=== PATIENT | female | born 1965 | race Hispanic/Latino ===

== ENCOUNTER 2018-07-10 19:15 | Emergency (ER) | payer OTHER ==
[2018-07-10] MEDS ORDERED: SODIUM CHLORIDE 0.9% 1000ML 1,000 ML IV ONE (20:07)
[2018-07-10] MEDS ORDERED: MORPHINE SULFATE 4 MG/1ML SYG ONE ×2 (20:07→21:45)
[2018-07-10] MEDS ORDERED: ONDANSETRON HCL 4 MG/2 ML VIAL ONE (20:07)
[2018-07-10 20:08] LABS: BASOPHILS % (AUTO) 0.8 % (0.0-5.0); EOSINOPHILS % (AUTO) 2.8 % (0.0-8.0); HEMATOCRIT 42.8 % (36-48); LYMPHOCYTES % (AUTO) 30.8 % (21.0-51.0); MEAN CORPUSCULAR HEMOGLOBIN 28.8 pg (27.0-33.0); MEAN CORPUSCULAR HGB CONC 32.9 g/dL (32.0-36.0); MEAN CORPUSCULAR VOLUME 87.5 fL (79-99); MONOCYTES % (AUTO) 6.9 % (3.0-13.0); NEUTROPHILS % (AUTO) 58.7 % (40.0-77.0); NUCLEATED RED BLOOD CELLS 0.2 % (0.0-0.19); PLATELET COUNT (AUTO) 215 K/uL (130-400); RED BLOOD CELL COUNT(AUTO) 4.89 MIL/uL (4.00-5.50); RED CELL DISTRIBUTION WIDTH 14.7 % (11.0-15.5); WHITE BLOOD COUNT (AUTO) 9.7 K/uL (4.8-10.8)
[2018-07-10 20:18] LABS: CREATININE 0.9 mg/dL (0.5-1.5); POTASSIUM 4.2 mmol/L (3.5-5.1)
[2018-07-10 20:24] LABS: ALBUMIN 3.6 g/dL (3.5-5.0); BILIRUBIN,TOTAL 0.3 mg/dL (0.2-1.0); TOTAL PROTEIN, SERUM 6.7 g/dL (6.0-8.3)
[2018-07-10 20:27] LABS: BILIRUBIN,URINE Negative (NEGATIVE); COLOR,URINE Yellow (YELLOW); GLUCOSE, URINE (UA) Negative (NEGATIVE); KETONES,URINE Negative (NEGATIVE); LEUKOCYTE ESTERASE ,URINE Small (NEGATIVE); NITRATE,URINE Negative (NEGATIVE); OCCULT BLOOD,URINE Trace (NEGATIVE); PROTEIN,URINE Negative (NEGATIVE)
[2018-07-10 20:28] LABS: APPEARANCE,URINE SLIGHTLY CLOUDY (CLEAR)
[2018-07-10 20:34] LABS: RBC,URINE 0-1 /HPF (0-1)
[2018-07-10 20:35] LABS: BACTERIA,URINE Rare /HPF (None Seen)
[2018-07-10] MEDS ORDERED: KETOROLAC TROMETHAMINE 30MG/ML ONE (20:54)
== END 2018-07-10 22:16 | disposition home or self-care (01) ==
LOC: EDH 19:15
DX: K80.20 Calculus of gallbladder without cholecystitis without obstruction (principal); Z90.49 Acquired absence of other specified parts of digestive tract
CPT/HCPCS: 36415; 76705; 80053; 81001; 82150; 83690; 85025; 93005; 96361; 96374; 96375; 96376; 99285; J1885; J2270 ×2; J2405; J7030

== ENCOUNTER 2018-09-17 23:47 | Inpatient (IN) | payer OTHER ==
[~2018-09-17] VITALS: Ht 152.4 cm; Wt 83.9 kg
[2018-09-18 00:17] LABS: APPEARANCE,URINE Cloudy (CLEAR); BILIRUBIN,URINE Negative (NEGATIVE); COLOR,URINE Dark Yellow (YELLOW); GLUCOSE, URINE (UA) Negative (NEGATIVE); KETONES,URINE Trace mg/dL (NEGATIVE); LEUKOCYTE ESTERASE ,URINE Trace (NEGATIVE); NITRATE,URINE Negative (NEGATIVE); OCCULT BLOOD,URINE Negative (NEGATIVE); PH,URINE 5.5 (5.0-8.0); PROTEIN,URINE POS 1+ (NEGATIVE)
[2018-09-18 00:23] LABS: BACTERIA,URINE None Seen /HPF (None Seen); MUCUS,URINE Many LPF (None Seen); RBC,URINE None Seen /HPF (0-1); SQUAMOUS EPITHELIAL CELL,UR Few /HPF (0-2)
[2018-09-18 00:37] LABS: BASOPHILS % (AUTO) 0.8 % (0.0-5.0); HEMATOCRIT 41.3 % (36-48); LYMPHOCYTES % (AUTO) 11.7 % (21.0-51.0); MEAN CORPUSCULAR HEMOGLOBIN 28.9 pg (27.0-33.0); MEAN CORPUSCULAR HGB CONC 33.7 g/dL (32.0-36.0); MONOCYTES % (AUTO) 2.7 % (3.0-13.0); NEUTROPHILS % (AUTO) 83.8 % (40.0-77.0); PLATELET COUNT (AUTO) 291 K/uL (130-400); WHITE BLOOD COUNT (AUTO) 11.2 K/uL (4.8-10.8)
[2018-09-18] MEDS ORDERED: SODIUM CHLORIDE 0.9% 1000ML 1,000 ML IV ONE ×2 (00:43→03:07)
[2018-09-18] MEDS ORDERED: ONDANSETRON HCL 4 MG/2 ML VIAL ONE (00:43)
[2018-09-18 00:46] LABS: CREATININE 0.9 mg/dL (0.5-1.5)
[2018-09-18] MEDS ORDERED: FAMOTIDINE 20MG TAB 20 MG TAB ONE (00:46)
[2018-09-18 00:50] LABS: BILIRUBIN,TOTAL 0.5 mg/dL (0.2-1.0); TOTAL PROTEIN, SERUM 7.9 g/dL (6.0-8.3)
[2018-09-18] MEDS ORDERED: METOCLOPRAMIDE 10 MG/2 ML VIAL ONE (03:07)
[2018-09-18] MEDS ORDERED: MORPHINE SULFATE 4 MG/1ML SYG ONE ×4 (03:08→20:52)
[2018-09-18] MEDS ORDERED: LIDOCAINE HCL 2% JELLY 5 ML ONE (03:24)
[2018-09-18] MEDS: SODIUM CHLORIDE 0.9% 1000ML 1,000 ML IV SCH ×3 (04:49→20:12)
[2018-09-18] MEDS ORDERED: ONDANSETRON HCL 4 MG/2 ML VIAL IV PRN (05:00)
[2018-09-18] MEDS: LEVOFLOXACIN 500 MG/D5W 100 ML 100 ML IV SCH (05:00)
[2018-09-18] MEDS ORDERED: MORPHINE SULFATE 2 MG/ML 1ML SYG IV PRN (05:00)
[2018-09-18] MEDS ORDERED: LEVOFLOXACIN 500 MG/D5W 100 ML 100 ML ONE (05:31)
[2018-09-18 08:30] VITALS: BP 115/68
[2018-09-18] MEDS: FAMOTIDINE/PF 20 MG/2 ML VIAL IV SCH ×2 (09:33→20:44)
[2018-09-18 11:37] VITALS: BP 121/64
[2018-09-18] MEDS: METRONIDAZOLE 500MG/100ML BAG 100 ML IV SCH ×2 (13:24→20:44)
[2018-09-18 16:09] VITALS: BP 133/73
[2018-09-18 20:00] VITALS: BP 139/70
[2018-09-19] VITALS: BP 138/66
[2018-09-19] MEDS ORDERED: MORPHINE SULFATE 4 MG/1ML SYG ONE ×2 (01:46→04:50)
[2018-09-19 04:00] VITALS: BP 140/79
[2018-09-19 04:59] LABS: HEMATOCRIT 37.3 % (36-48); MEAN CORPUSCULAR HEMOGLOBIN 29.2 pg (27.0-33.0); MEAN CORPUSCULAR HGB CONC 33.7 g/dL (32.0-36.0); MEAN CORPUSCULAR VOLUME 86.6 fL (79-99); PLATELET COUNT (AUTO) 240 K/uL (130-400); RED CELL DISTRIBUTION WIDTH 14.2 % (11.0-15.5); WHITE BLOOD COUNT (AUTO) 8.8 K/uL (4.8-10.8)
[2018-09-19] MEDS: SODIUM CHLORIDE 0.9% 1000ML 1,000 ML IV SCH (05:03)
[2018-09-19] MEDS: LEVOFLOXACIN 500 MG/D5W 100 ML 100 ML IV SCH (05:03)
[2018-09-19 05:15] LABS: ALBUMIN 3.3 g/dL (3.5-5.0); BILIRUBIN,TOTAL 0.5 mg/dL (0.2-1.0); CREATININE 0.9 mg/dL (0.5-1.5); POTASSIUM 3.4 mmol/L (3.5-5.1); TOTAL PROTEIN, SERUM 6.6 g/dL (6.0-8.3)
[2018-09-19] MEDS ORDERED: POTASSIUM CHLORIDE 20MEQ/100ML 100 ML IV PRN (06:45)
[2018-09-19] MEDS ORDERED: POTASSIUM CHLORIDE 20 MEQ ERTAB PO PRN (06:45)
[2018-09-19] MEDS ORDERED: POTASSIUM CHLORIDE 10% ELIXIR 20 MEQ/15 ML UDCUP PO PRN (06:45)
[2018-09-19] MEDS: METRONIDAZOLE 500MG/100ML BAG 100 ML IV SCH (06:45)
[2018-09-19] MEDS ORDERED: LIDOCAINE HCL-MPF 1% 2ML VIAL IVP PRN (06:45)
[2018-09-19 08:04] VITALS: BP 132/79
[2018-09-19] MEDS: FAMOTIDINE/PF 20 MG/2 ML VIAL IV SCH (08:26)
[2018-09-19 12:33] VITALS: BP 137/77
== END 2018-09-19 12:19 | disposition home or self-care (01) | DRG 390 ==
LOC: EDH 23:47 → EDHIP 23:48 → OBSVTOIN 23:48 → EDHIP 09-18 04:30 → UNDOADMOB 09-18 04:30 → 4CH 09-18 08:14
PROVIDERS: ADMIT Hospitalist; ATTEND Hospitalist
DX: K56.600 Partial intestinal obstruction, unspecified as to cause (principal); K80.20 Calculus of gallbladder without cholecystitis without obstruction; K52.9 Noninfective gastroenteritis and colitis, unspecified; E87.6 Hypokalemia; Z23 Encounter for immunization; Z93.3 Colostomy status
CPT/HCPCS: 36415; 74018; 74177; 76705; 80053; 81001; 82150; 83690; 85025; 85027; 93005; G0378; J1956; J2270; J2405; J2765; J3490; J7030; Q2035

== ENCOUNTER 2021-03-15 18:41 | Emergency (ER) | payer MEDICAID, OTHER ==
[~2021-03-15] VITALS: Ht 152.4 cm; Wt 77.1 kg
[2021-03-15 18:47] VITALS: BP 132/83
[2021-03-15] MEDS ORDERED: PROMETHAZINE HCL 25 MG/ML 1ML AMPULE IM SCH (19:30)
[2021-03-15] MEDS ORDERED: KETOROLAC 30MG VIAL (30MG/ML) IV ONE (19:30)
[2021-03-15 19:35] LABS: BASOPHILS % (AUTO) 0.4 % (0.0-5.0); EOSINOPHILS % (AUTO) 2.7 % (0.0-8.0); HEMATOCRIT 42.7 % (36-48); LYMPHOCYTES % (AUTO) 26.8 % (21.0-51.0); MEAN CORPUSCULAR HEMOGLOBIN 28.1 pg (27.0-33.0); MEAN CORPUSCULAR HGB CONC 32.1 g/dL (32.0-36.0); MEAN CORPUSCULAR VOLUME 87.5 fL (79-99); MONOCYTES % (AUTO) 6.9 % (3.0-13.0); NEUTROPHILS % (AUTO) 62.9 % (40.0-77.0); PLATELET COUNT (AUTO) 288 K/uL (130-400); RED BLOOD CELL COUNT(AUTO) 4.88 MIL/uL (4.00-5.50); RED CELL DISTRIBUTION WIDTH 14.1 % (11.0-15.5); WHITE BLOOD COUNT (AUTO) 9.2 K/uL (4.8-10.8)
[2021-03-15 19:38] LABS: APPEARANCE,URINE Clear (CLEAR); BILIRUBIN,URINE Negative (NEGATIVE); COLOR,URINE Yellow (YELLOW); GLUCOSE, URINE (UA) Negative (NEGATIVE); KETONES,URINE Negative (NEGATIVE); LEUKOCYTE ESTERASE ,URINE Negative (NEGATIVE); NITRATE,URINE Negative (NEGATIVE); OCCULT BLOOD,URINE Negative (NEGATIVE); PROTEIN,URINE Negative (NEGATIVE)
[2021-03-15 19:45] LABS: CREATININE 0.8 mg/dL (0.5-1.5); POTASSIUM 4.1 mmol/L (3.5-5.1)
[2021-03-15 19:51] LABS: ALBUMIN 4.1 g/dL (3.5-5.0); BILIRUBIN,TOTAL 0.3 mg/dL (0.2-1.0); TOTAL PROTEIN, SERUM 8.4 g/dL (6.0-8.3)
[2021-03-15] MEDS ORDERED: NAPR-1180 PO (21:08)
[2021-03-15 21:10] VITALS: BP 147/61
== END 2021-03-15 22:07 | disposition home or self-care (01) ==
LOC: EDH 18:41
DX: D25.9 Leiomyoma of uterus, unspecified (principal); Z93.3 Colostomy status; E66.9 Obesity, unspecified; Z79.1 Long term (current) use of non-steroidal anti-inflammatories (NSAID)
CPT/HCPCS: 36415; 74176; 80053; 81003; 85025; 86140; 96372; 96374; 99285; J1885; J2550

== ENCOUNTER 2023-04-02 20:03 | Emergency (ER) | payer BC ==
[~2023-04-02] VITALS: Ht 152.4 cm; Wt 81.6 kg
[~2023-04-02 20:03] MED LIST: NAPR-1180 PO
[2023-04-02 20:50] LABS: BASOPHILS % (AUTO) 0.3 % (0.0-5.0); EOSINOPHILS % (AUTO) 0.2 % (0.0-8.0); HEMATOCRIT 43.1 % (36-48); LYMPHOCYTES % (AUTO) 17.6 % (21.0-51.0); MEAN CORPUSCULAR HEMOGLOBIN 28.7 pg (27.0-33.0); MEAN CORPUSCULAR HGB CONC 32.5 g/dL (32.0-36.0); MEAN CORPUSCULAR VOLUME 88.3 fL (79-99); MONOCYTES % (AUTO) 2.5 % (3.0-13.0); NEUTROPHILS % (AUTO) 79.1 % (40.0-77.0); PLATELET COUNT (AUTO) 286 K/uL (130-400); RED BLOOD CELL COUNT(AUTO) 4.88 MIL/uL (4.00-5.50); RED CELL DISTRIBUTION WIDTH 14.1 % (11.0-15.5); WHITE BLOOD COUNT (AUTO) 8.8 K/uL (4.8-10.8)
[2023-04-02] MEDS ORDERED: MORPHINE 4 MG SYG IVP ONE (21:00)
[2023-04-02] MEDS ORDERED: ONDANSETRON 4MG INJ IVP ONE (21:00)
[2023-04-02 21:05] LABS: ALBUMIN 3.9 g/dL (3.5-5.0); CREATININE 0.9 mg/dL (0.5-1.5); MAGNESIUM 2.2 mg/dL (1.80-2.40); POTASSIUM 4.5 mmol/L (3.5-5.1); TOTAL PROTEIN, SERUM 7.8 g/dL (6.0-8.3)
[2023-04-02] MEDS ORDERED: FENTANYL CITRATE PF 50 MCG/1 ML 2ML VIAL IVP ONE (23:00)
[2023-04-02 23:42] VITALS: BP 132/54
== END 2023-04-03 00:44 | disposition home or self-care (01) ==
LOC: EDH 20:03
DX: G44.209 Tension-type headache, unspecified, not intractable (principal); E11.9 Type 2 diabetes mellitus without complications; M19.90 Unspecified osteoarthritis, unspecified site; Z20.822 Contact with and (suspected) exposure to COVID-19
CPT/HCPCS: 99284; 96374; 70450; 96375; 87635; 83735; 84484; 80053; 85025; 87804 ×2; 36415; 93005; C9803; J3010; J2405; J2270

== ENCOUNTER 2024-03-09 16:00 | Inpatient (IN) | payer BC ==
[~2024-03-09] VITALS: Ht 152.4 cm; Wt 73.8 kg
[2024-03-09] MEDS: 0.9%NACL 1000ML 1,000 ML IV ONE (16:21)
[2024-03-09] MEDS: MORPHINE 4 MG SYG IVP ONE ×2 (16:21→19:32)
[2024-03-09] MEDS: ONDANSETRON 4MG INJ IVP ONE (16:21)
[2024-03-09 16:24] LABS: BASOPHILS # (AUTO) 0.05 K/uL (0.00-0.20); BASOPHILS % (AUTO) 0.5 % (0.0-5.0); EOSINOPHILS % (AUTO) 1.9 % (0.0-8.0); HEMATOCRIT 42.9 % (36-48); IMMATURE GRANULOCYTE ABSOLUTE 0.03 K/uL (0-1); LYMPHOCYTES # (AUTO) 3.9 K/uL (1.0-4.8); LYMPHOCYTES % (AUTO) 37.8 % (21.0-51.0); MEAN CORPUSCULAR HEMOGLOBIN 28.9 pg (27.0-33.0); MEAN CORPUSCULAR HGB CONC 33.8 g/dL (32.0-36.0); MEAN CORPUSCULAR VOLUME 85.5 fL (79-99); MONOCYTES # (AUTO) 0.7 K/uL (0.1-1.0); MONOCYTES % (AUTO) 6.3 % (3.0-13.0); NEUTROPHILS # (AUTO) 5.5 K/uL (1.8-7.7); NEUTROPHILS % (AUTO) 53.2 % (40.0-77.0); PLATELET COUNT (AUTO) 276 K/uL (130-400); RED BLOOD CELL COUNT(AUTO) 5.02 MIL/uL (4.00-5.50); RED CELL DISTRIBUTION WIDTH 13.4 % (11.0-15.5); WHITE BLOOD COUNT (AUTO) 10.4 K/uL (4.8-10.8)
[2024-03-09 16:35] LABS: CREATININE 1.1 mg/dL (0.5-1.0); POTASSIUM 3.5 mmol/L (3.5-5.1)
[2024-03-09 16:40] LABS: ALBUMIN 4.3 g/dL (3.5-5.0); BILIRUBIN,TOTAL 0.3 mg/dL (0.2-1.0); TOTAL PROTEIN, SERUM 8.4 g/dL (6.0-8.3)
[2024-03-09] MEDS ORDERED: IOHEXOL 350 MG/ML 100ML INFUS..BTL IV ONE (16:47)
[2024-03-09 17:30] LABS: APPEARANCE,URINE CLEAR (CLEAR); BILIRUBIN,URINE NEGATIVE (NEGATIVE); COLOR,URINE YELLOW (YELLOW); GLUCOSE, URINE (UA) NEGATIVE (NEGATIVE); KETONES,URINE NEGATIVE (NEGATIVE); LEUKOCYTE ESTERASE ,URINE 250 Leu/uL (NEGATIVE); NITRATE,URINE NEGATIVE (NEGATIVE); OCCULT BLOOD,URINE SMALL (NEGATIVE); PH,URINE 6.5 (5.0-8.0); PROTEIN,URINE 20 mg/dL (NEGATIVE); UROBILINOGEN,URINE 0.2 mg/dL (0.2-1.0)
[2024-03-09 17:31] LABS: ADD UA MICROSCOPIC YES
[2024-03-09 17:35] LABS: MUCUS,URINE RARE LPF (None Seen); SQUAMOUS EPITHELIAL CELL,UR FEW /HPF (0-2)
[2024-03-10] VITALS (9 sets, daily range): BP systolic 140–163; BP diastolic 68–96; PULSE 62–85; RESP 17–20; O2SAT 96
[2024-03-10] MEDS: 0.9%NACL 1000ML 1,000 ML IV SCH (01:40)
[2024-03-10 06:07] LABS: BASOPHILS # (AUTO) 0.03 K/uL (0.00-0.20); BASOPHILS % (AUTO) 0.4 % (0.0-5.0); EOSINOPHILS % (AUTO) 1.4 % (0.0-8.0); IMMATURE GRANULOCYTE ABSOLUTE 0.02 K/uL (0-1); LYMPHOCYTES # (AUTO) 2.1 K/uL (1.0-4.8); LYMPHOCYTES % (AUTO) 29.3 % (21.0-51.0); MEAN CORPUSCULAR HEMOGLOBIN 28.5 pg (27.0-33.0); MEAN CORPUSCULAR HGB CONC 33.1 g/dL (32.0-36.0); MEAN CORPUSCULAR VOLUME 86.1 fL (79-99); MONOCYTES # (AUTO) 0.4 K/uL (0.1-1.0); MONOCYTES % (AUTO) 5.9 % (3.0-13.0); NEUTROPHILS # (AUTO) 4.6 K/uL (1.8-7.7); NEUTROPHILS % (AUTO) 62.7 % (40.0-77.0); PLATELET COUNT (AUTO) 227 K/uL (130-400); RED BLOOD CELL COUNT(AUTO) 4.53 MIL/uL (4.00-5.50); RED CELL DISTRIBUTION WIDTH 13.7 % (11.0-15.5); WHITE BLOOD COUNT (AUTO) 7.3 K/uL (4.8-10.8)
[2024-03-10 06:30] LABS: INR <= 0.93 (0.85-1.15); PROTHROMBIN TIME 10.9 SEC (9.6-11.6)
[2024-03-10 06:31] LABS: PARTIAL THROMBOPLASTIN TIME 26.1 SEC (26.3-35.5)
[2024-03-10 06:38] LABS: ALBUMIN 3.4 g/dL (3.5-5.0); BILIRUBIN,TOTAL 0.6 mg/dL (0.2-1.0); CREATININE 0.9 mg/dL (0.5-1.0); MAGNESIUM 2.1 mg/dL (1.80-2.40); POTASSIUM 4.2 mmol/L (3.5-5.1)
[2024-03-10 06:49] LABS: HEMOGLOBIN A1C 5.6 % (4.0-6.0)
[2024-03-10] MEDS: FAMOTIDINE 20MG VIAL IV SCH (07:46)
[2024-03-10] MEDS: CEFTRIAXONE 1G VIAL IVPB SCH (07:46)
[2024-03-10] MEDS ORDERED: CEFTRIAXONE 1G VIAL 1 GM in 0.9%NACL 50ML 50 ML IV SCH (09:00)
[2024-03-10] MEDS ORDERED: HYDRALAZINE 20MG/ML VIAL IV PRN (12:00)
[2024-03-10] MEDS: HYDRALAZINE 20MG/ML VIAL IV ONE (12:11)
[2024-03-10] MEDS: MORPHINE 2 MG SYG IVP PRN (21:08)
[2024-03-10] MEDS: ONDANSETRON 4MG INJ IV PRN (21:14)
[2024-03-10 21:53] LABS: AMPHET/METH SCREEN,URINE NEGATIVE (NEGATIVE); BARBITURATE SCREEN, URINE NEGATIVE (NEGATIVE); BENZODIAZEPINES SCREEN,URINE NEGATIVE (NEGATIVE); CANNABINOID SCREEN,URINE NEGATIVE (NEGATIVE); COCAINE SCREEN,URINE NEGATIVE (NEGATIVE); OPIATE SCREEN,URINE POSITIVE (NEGATIVE); PHENCYCLIDINE SCREEN,URINE NEGATIVE (NEGATIVE)
[2024-03-11] VITALS (7 sets, daily range): BP systolic 150–158; BP diastolic 76–84; PULSE 68–99; RESP 17–20; O2SAT 94–96
[2024-03-11 05:38] LABS: BASOPHILS # (AUTO) 0.03 K/uL (0.00-0.20); BASOPHILS % (AUTO) 0.3 % (0.0-5.0); EOSINOPHILS # (AUTO) 0.04 K/uL (0.00-0.70); EOSINOPHILS % (AUTO) 0.4 % (0.0-8.0); HEMATOCRIT 39.5 % (36-48); IMMATURE GRANULOCYTE ABSOLUTE 0.02 K/uL (0-1); LYMPHOCYTES # (AUTO) 1.6 K/uL (1.0-4.8); LYMPHOCYTES % (AUTO) 15.6 % (21.0-51.0); MEAN CORPUSCULAR HGB CONC 33.7 g/dL (32.0-36.0); MEAN CORPUSCULAR VOLUME 86.2 fL (79-99); MONOCYTES # (AUTO) 0.8 K/uL (0.1-1.0); MONOCYTES % (AUTO) 7.6 % (3.0-13.0); NEUTROPHILS # (AUTO) 7.6 K/uL (1.8-7.7); NEUTROPHILS % (AUTO) 75.9 % (40.0-77.0); PLATELET COUNT (AUTO) 220 K/uL (130-400); RED BLOOD CELL COUNT(AUTO) 4.58 MIL/uL (4.00-5.50); RED CELL DISTRIBUTION WIDTH 13.6 % (11.0-15.5)
[2024-03-11 05:54] LABS: ALBUMIN 3.3 g/dL (3.5-5.0); BILIRUBIN,TOTAL 0.7 mg/dL (0.2-1.0); CREATININE 0.9 mg/dL (0.5-1.0); POTASSIUM 3.5 mmol/L (3.5-5.1); TOTAL PROTEIN, SERUM 7.2 g/dL (6.0-8.3)
[2024-03-12] VITALS (9 sets, daily range): BP systolic 115–155; BP diastolic 61–89; PULSE 69–97; RESP 16–20; O2SAT 96
[2024-03-12 05:36] LABS: BASOPHILS # (AUTO) 0.05 K/uL (0.00-0.20); BASOPHILS % (AUTO) 0.5 % (0.0-5.0); EOSINOPHILS # (AUTO) 0.07 K/uL (0.00-0.70); EOSINOPHILS % (AUTO) 0.6 % (0.0-8.0); HEMATOCRIT 38.9 % (36-48); IMMATURE GRANULOCYTE ABSOLUTE 0.04 K/uL (0-1); LYMPHOCYTES # (AUTO) 1.7 K/uL (1.0-4.8); MEAN CORPUSCULAR HEMOGLOBIN 29.2 pg (27.0-33.0); MEAN CORPUSCULAR HGB CONC 33.7 g/dL (32.0-36.0); MEAN CORPUSCULAR VOLUME 86.8 fL (79-99); MONOCYTES # (AUTO) 0.8 K/uL (0.1-1.0); MONOCYTES % (AUTO) 6.9 % (3.0-13.0); NEUTROPHILS # (AUTO) 8.5 K/uL (1.8-7.7); NEUTROPHILS % (AUTO) 76.6 % (40.0-77.0); PLATELET COUNT (AUTO) 197 K/uL (130-400); RED BLOOD CELL COUNT(AUTO) 4.48 MIL/uL (4.00-5.50); RED CELL DISTRIBUTION WIDTH 13.4 % (11.0-15.5); WHITE BLOOD COUNT (AUTO) 11.1 K/uL (4.8-10.8)
[2024-03-12 07:23] LABS: ALBUMIN 3.3 g/dL (3.5-5.0); BILIRUBIN,TOTAL 0.7 mg/dL (0.2-1.0); CREATININE 0.7 mg/dL (0.5-1.0); POTASSIUM 3.5 mmol/L (3.5-5.1); TOTAL PROTEIN, SERUM 7.2 g/dL (6.0-8.3)
[2024-03-12] MEDS: MUPIROCIN OINTMENT 22 GM TUBE TP SCH (09:34)
[2024-03-12] MEDS: POTASSIUM CHLORIDE 20MEQ/100ML 100 ML IV PRN (09:34)
[2024-03-12] MEDS ORDERED: ZOSYN 3.375GM +NS 50ML IV SCH (10:00)
[2024-03-12] MEDS: ZOSYN 3.375GM +NS 50ML IV SCH (12:30)
[2024-03-12] MEDS: MAGNESIUM CITRATE 296 ML SOLUTION PO ONE (18:13)
[2024-03-13 03:00] VITALS: BP 121/65; PULSE 65; RESP 16
[2024-03-13 04:24] LABS: BASOPHILS # (AUTO) 0.05 K/uL (0.00-0.20); BASOPHILS % (AUTO) 0.5 % (0.0-5.0); EOSINOPHILS # (AUTO) 0.14 K/uL (0.00-0.70); EOSINOPHILS % (AUTO) 1.3 % (0.0-8.0); HEMATOCRIT 36.3 % (36-48); IMMATURE GRANULOCYTE ABSOLUTE 0.03 K/uL (0-1); LYMPHOCYTES # (AUTO) 2.8 K/uL (1.0-4.8); MEAN CORPUSCULAR HEMOGLOBIN 28.6 pg (27.0-33.0); MEAN CORPUSCULAR HGB CONC 33.6 g/dL (32.0-36.0); MONOCYTES # (AUTO) 0.8 K/uL (0.1-1.0); MONOCYTES % (AUTO) 7.9 % (3.0-13.0); NEUTROPHILS # (AUTO) 6.6 K/uL (1.8-7.7); PLATELET COUNT (AUTO) 228 K/uL (130-400); RED BLOOD CELL COUNT(AUTO) 4.27 MIL/uL (4.00-5.50); RED CELL DISTRIBUTION WIDTH 13.5 % (11.0-15.5); WHITE BLOOD COUNT (AUTO) 10.5 K/uL (4.8-10.8)
[2024-03-13 04:36] LABS: CREATININE 0.8 mg/dL (0.5-1.0); MAGNESIUM 2.2 mg/dL (1.80-2.40); POTASSIUM 3.7 mmol/L (3.5-5.1)
[2024-03-13 07:55] VITALS: BP 137/71; PULSE 80; RESP 20
[2024-03-13 08:00] VITALS: O2SAT 98
[2024-03-13 11:13] VITALS: BP 132/74; PULSE 63; RESP 20
[2024-03-13 15:05] VITALS: BP 137/76; PULSE 63; RESP 20
== END 2024-03-13 18:54 | disposition home or self-care (01) | DRG 389 ==
LOC: EDH 16:00 → OBSVTOIN 03-10 00:18 → EDHIP 03-10 00:18 → 3AH 03-10 01:40
PROVIDERS: ADMIT Internal Medicine; ATTEND Internal Medicine
PROC: 0D9670Z Drainage of Stomach with Drainage Device, Via Natural or Artificial Opening (ICD-10-PCS; principal; 2024-03-09)
DX: K56.50 Intestinal adhesions [bands], unspecified as to partial versus complete obstruction (principal); N39.0 Urinary tract infection, site not specified; E66.9 Obesity, unspecified; R73.9 Hyperglycemia, unspecified; I10 Essential (primary) hypertension; Z68.31 Body mass index [BMI] 31.0-31.9, adult; Z82.49 Family history of ischemic heart disease and other diseases of the circulatory system; Z82.5 Family history of asthma and other chronic lower respiratory diseases; Z83.3 Family history of diabetes mellitus; Z90.49 Acquired absence of other specified parts of digestive tract
CPT/HCPCS: 36415; 71045; 74018; 74177; 80048; 80053; 80061; 80305; 81001; 83036; 83735; 84484; 85025; 85610; 85730; 87088; 93005; 96375; 96376; G0378; J0360; J0696; J2270; J2405; J2543; J3480; J3490; J7030; Q9967

== ENCOUNTER 2025-06-19 02:47 | Emergency (ER) | payer BC ==
[~2025-06-19] VITALS: Ht 152.4 cm; Wt 86.2 kg
--- NOTE | 2025-06-19 03:07 | ERN ---
ED Note History of Present Illness Stated Complaint: CHEST PAIN Chief Complaint: Chest Pain Time Seen by MD: 02:54 Dictation: This is a 59-year-old female who presented to the emergency room complaining of chest pain that started around 1:00 a.m.. She stated that she was watching TV with her grandson when she started feeling tenderness in her breasts and they felt severely engorged. She apparently has had some pain on the lateral aspects of the breasts for which she has been evaluated by imaging studies. He stated that it is tender when she touches the chest. No heartburn or indigestion symptoms tonight. No diaphoresis palpitations or syncopal episode or presyncope symptoms. This no change of pain intensity in moving forward or leaning forward No nausea vomitings diarrhea. She stated that she has been extremely stressed out and overwhelmed in raising 2 grand kids when her daughter just dropped them off for her to raise. Temperature 97.9 pulse 56 respirations 16 blood pressure 132/70 with a pulse oximetry of 97% on room air Allergies: Coded Allergies: No Known Drug Allergies (Verified Allergy, 09/29/13) Home Meds No Active Prescriptions or Reported Meds Past Medical History Past Medical History: No Pertinent History Surgical History: Other Surgical History Other: COLOSTOMY TAKE DOWN, MULTIPLE GI SURGERIES Family History: Negative Social History: Negative History: Not Applicable RN Note Reviewed/Agreed w/PFSH: Yes Review of System Dictation Constitutional: Negative for fever,chills, and weight loss Eyes: Negative for injury, pain,redness, and discharge ENT: Negative for injury,pain or swelling Cardiovascular: Positive for chest pain with soreness in the breasts, denied palpitations, and edema Respiratory: Negative for shortness of breath, cough, and wheezing, Abdomen/GI: Negative for abdominal pain, nausea, vomiting, diarrhea, and constipation Back: Negative for injury and pain : Negative for injury, bleeding and discharge MS/Extremity: Negative for injury and deformity Skin: Negative for rash, and discoloration Neuro: Negative for headache, weakness, numbness, tingling, and seizure Psych: Negative for suicide ideation, homicidal ideation, and hallucinations Initial Vital Sign VS Vital Signs Date Time Temp Pulse Resp B/P (MAP) Pulse Ox O2 Delivery O2 Flow Rate FiO2 06/19/25 02:54 97.9 56 16 132/70 97 Room Air* 0 21 Physical Exam Dictation General: awake, alert, NAD Head/Face: Normocephalic, atraumatic Eyes: PERRL, EOMI, vision at baseline ENT: oral cavity clear, TMs clear, no signs of infection Neck: Trachea midline, supple, no nuchal rigidity Cardiovascular: RRR, normal S1/S2, No MRGs, no JVD chest wall tender and palpation of the breasts tender. I did not appreciate any masses no discharge from the nipples, no redness induration Respiratory: CTAB, no respiratory distress, No rales or wheezes Abdomen: Soft, non-tender, non-distended, normal bowel sounds, no guarding or rebound. Skin: Warm, dry, normal turgor, no rash MS/Extremity: Pulses equal, no cyanosis, neurovascular intact, FROM Neuro: COAx4, GCS 15, strength 5/5, CN 2-12 intact, normal cerebellar exam, normal gait, Psych: Normal behavior, mood, and affect normal Extremities-trace edema without any palpable cords, Homans sign is negative Results (Laboratory/Radiology) Laboratory/Radiology Laboratory Tests Test 06/19/25 03:07 White Blood Count 8.6 K/uL (4.8-10.8) Red Blood Count 4.51 MIL/uL (4.00-5.50) Hemoglobin 13.1 g/dL (12.0-16.0) Hematocrit 39.6 % (36-48) Mean Corpuscular Volume 87.8 fL (79-99) Mean Corpuscular Hemoglobin 29.0 pg (27.0-33.0) Mean Corpuscular Hemoglobin Concent 33.1 g/dL (32.0-36.0) Red Cell Distribution Width 14.0 % (11.0-15.5) Platelet Count 213 K/uL (130-400) Mean Platelet Volume 11.3 fL (7.5-10.5) H Immature Granulocyte % (Auto) 0.2 % (0-1) Neutrophils (%) (Auto) 51.9 % (40.0-77.0) Lymphocytes (%) (Auto) 36.0 % (21.0-51.0) Monocytes (%) (Auto) 8.3 % (3.0-13.0) Eosinophils (%) (Auto) 3.1 % (0.0-8.0) Basophils (%) (Auto) 0.5 % (0.0-5.0) Neutrophils # (Auto) 4.5 K/uL (1.8-7.7) Lymphocytes # (Auto) 3.1 K/uL (1.0-4.8) Monocytes # (Auto) 0.7 K/uL (0.1-1.0) Eosinophils # (Auto) 0.27 K/uL (0.00-0.70) Basophils # (Auto) 0.04 K/uL (0.00-0.20) Absolute Immature Granulocyte (auto 0.02 K/uL (0-1) Nucleated Red Blood Cells 0.0 % (0.0-0.19) Prothrombin Time 10.3 SEC (9.6-11.6) Prothromb Time International Ratio 0.97 (0.85-1.15) Activated Partial Thromboplast Time 28.2 SEC (26.3-35.5) Sodium Level 140 mmol/L (136-145) Potassium Level 3.6 mmol/L (3.5-5.1) Chloride Level 102 mmol/L (101-111) Carbon Dioxide Level 30 mmol/L (21-32) Blood Urea Nitrogen 18 mg/dL (7-18) Creatinine 0.9 mg/dL (0.5-1.0) Glomerular Filtration Rate Calc 74 mL/min (>90) Random Glucose 113 mg/dL (70-105) H Total Calcium 8.7 mg/dL (8.5-10.1) Troponin I High Sensitivity 6 ng/L (4-50) B-Type Natriuretic Peptide 20 pg/mL (0-100) Labs Reviewed?: Yes EKG Comment: Lead EKG done on 06/19/2025 at 2:42 a.m. showed a heart rate of 58, LA interval 139, QRS 88, QT/QTC 406/400 Impression normal sinus rhythm sinus bradycardia with a LVH. Nonspecific ST-T changes in the anterior leads I have compared the EKG to 03/09/2024 at 11:25 p.m. and there are no new EKG changes at this time. No obvious pericarditis changes noted EKG rhythm strip shows a normal sinus rhythm with no acute STT wave changes. Interpreted by ER MD Dr. Dowling X-RAY Comment: REASON: CP ORDERING PHYSICIAN: CARLOS DOWLING MD PROCEDURE: CXR1VW - CHEST 1VW EXAM: CR Chest, 1 view CLINICAL HISTORY: Chest pain. COMPARISON: Chest radiograph dated 03/10/2024. FINDINGS: The lungs show no infiltrates or other acute findings. No pleural effusion or pneumothorax. The cardiomediastinal silhouette is within normal limits. No acute osseous abnormality. IMPRESSION: No acute cardiopulmonary process is evident. No adverse interval changes. /[place] DICTATED BY: ARUN PADRON Jr., MD DATE: 06/19/25501 ELECTRONICALLY SIGNED BY: ARUN PADRON Jr., MD DATE: 06/19/25501 ED Course ED Course Orders Procedure Category Date Status Time 12 Lead Ekg Tracing- EKG 06/19/25 Logged Technical 02:55 Cbc With Differential LAB 06/19/25 Complete 02:55 Basic Metabolic Panel LAB 06/19/25 Complete 02:55 B-Type Natriuretic LAB 06/19/25 Complete Peptide 02:55 Troponin I High LAB 06/19/25 Complete Sensitivity 02:55 Pt And Ptt LAB 06/19/25 Complete 02:55 Chest 1vw RAD 06/19/25 Resulted 02:55 Ketorolac PHA 06/19/25 Complete Tromethamine 30mg/Ml 04:00 Current Medications Medications (Trade) Dose Ordered Sig/[place] Route PRN Reason Start Time Stop Time Status Last Admin Dose Admin Ketorolac Tromethamine (toRADol) 30 mg ONCE ONCE IVP 06/19/25 04:00 06/19/25 04:01 DC 06/19/25 03:50 Vital Signs Date Time Temp Pulse Resp B/P (MAP) Pulse Ox O2 Delivery O2 Flow Rate FiO2 06/19/25 05:01 98.1 65 16 125/66 98 Room Air* 0 21 06/19/25 02:54 97.9 56 16 132/70 97 Room Air* 0 21 We will perform diagnostic labs, advanced imaging and administer medications according to the patient's complaint. Once the results are available, will review and personally interpreted the labs to rule out any acute life- threatening emergency the trach require immediate intervention and treatment. I will then re-evaluate the patient after treatment and diagnostic exams have return to determine whether the patient requires any further testing, can safely be discharged home or need further admission to hospital for additional treatment and evaluation. HEART Score Response (Comments) Value History: Low suspicion (0) 0 EKG: Normal 0 Age: 45-65yrs (+1) 1 Risk Factors: No known risk factors (0) 0 Initial Troponin: Normal limit (0) 0 HEART Score Risk: Low Risk for MACE (1-3) Total 1 Medical Decision Making MDM Differential diagnosis: Pericarditis, Chest wall pain, costochondritis, mastitis, gastroesophageal reflux disease, angina, gastritis This is a 59-year-old female who presented to the emergency room complaining of chest pain that started around 1:00 a.m.. She stated that she was watching TV with her grandson when she started feeling tenderness in her breasts and they felt severely engorged. She apparently has had some pain on the lateral aspects of the breasts for which she has been evaluated by imaging studies. He stated that it is tender when she touches the chest. No heartburn or indigestion symptoms tonight. No diaphoresis palpitations or syncopal episode or presyncope symptoms. No nausea vomitings diarrhea. She stated that she has been extremely stressed out and overwhelmed in raising 2 grand kids when her daughter just dropped them off for her to raise. Temperature 97.9 pulse 56 respirations 16 blood pressure 132/70 with a pulse oximetry of 97% on room air 3:41 a.m. labs reviewed CBC is with a normal limits BNP 7 is with a normal limits chest x-ray is unremarkable for any acute infiltrate rib fractures or pneumothorax. 4:30 a.m. troponins are 6 brain natriuretic peptide is 20 I updated the patient on all the labs EKG chest x-ray findings and the presence of reproducible pain with tenderness is likely chest wall and inflammatory breast pain. She responded very well to Toradol Rationale: Tests considered and ordered secondary to shared decision making include: Previous outside records reviewed: Old ER visits. Risk of complication and/or morbidity or mortality of patient management: None Medications-Per medication reconciliation Need for hospitalization: Patient does not meet criteria for hospitalization. Need for emergency major/minor surgery: No There are no social concerns with this patient. Prescription drug management Prescriptions will include symptomatic care Patient's prior external medical records from other ER visits were reviewed by me as indicated. Prior testing and results from previous visits were reviewed. Prior tests were taken into account with medical decision making and resource utilization, independent historian/historians were used to obtain complete medical history. I independently interpreted the test that were performed, results were reviewed by me and considered findings on radiology if ordered. Medical management and examination interpretation discussions were had by me with other qualified healthcare professionals as indicated for the patient's care. Problem List Problem List: (1) Chest wall pain (2) Pain of both breasts DX & DISP Disposition: Discharge Departure Impression: Primary Impression: Chest wall pain Additional Impression: Pain of both breasts Condition: Stable Scripts No Active Prescriptions or Reported Meds Additional Instructions: Patient and the caregiver have been informed of all the diagnostic tests and the imaging conducted during the today's visit to the emergency room and has verbalized understanding of the results I have personally reviewed and interpreted all diagnostic exams performed here in the ER today as well as the vital signs documented by the nursing staff. The patient is now being discharged to home and should follow up with the primary care physician or the specialist as directed by the ER staff. Follow-up with primary care provider in 1 to 2 days. Take medications as directed here in the emergency room. Okay to continue home medications unless o therwise discussed during your visit in the emergency room today. Return to your nearest emergency room if symptoms worsen or if there is no improvement. Call 911 if you need immediate assistance. Take Tylenol or Motrin [id number] as needed and if no contraindications are present. Increase oral hydration. A wound culture or urine culture was ordered here in the emergency room department please follow-up with primary care provider and advise them to get repeat ports from our facility. If you had any [place] wrap/splints that were applied here, please do not remove them until you see your primary care or specialty. Referrals: NICOLE KILLIAN MD (PCP) CARLOS DOWLING MD Jun 19, 2025 03:06
[2025-06-19 03:30] LABS: IMMATURE GRANULOCYTE ABSOLUTE 0.02 K/uL (0-1); NUCLEATED RED BLOOD CELLS 0.0 % (0.0-0.19); PLATELET COUNT (AUTO) 213 K/uL (130-400); RED BLOOD CELL COUNT(AUTO) 4.51 MIL/uL (4.00-5.50); RED CELL DISTRIBUTION WIDTH 14.0 % (11.0-15.5); WHITE BLOOD COUNT (AUTO) 8.6 K/uL (4.8-10.8)
[2025-06-19 03:37] LABS: CREATININE 0.9 mg/dL (0.5-1.0); GLOMERULAR FILTR. RATE CALC 74.0 mL/min (>90); GLUCOSE,RANDOM 113.0 mg/dL (70-105); SODIUM SERUM 140.0 mmol/L (136-145); UREA NITROGEN, BLOOD 18.0 mg/dL (7-18)
[2025-06-19 04:03] LABS: INR 0.97 (0.85-1.15)
--- NOTE | 2025-06-19 04:03 | HMCIMG ---
EXAM: CR Chest, 1 view CLINICAL HISTORY: Chest pain. COMPARISON: Chest radiograph dated 03/10/2024. FINDINGS: The lungs show no infiltrates or other acute findings. No pleural effusion or pneumothorax. The cardiomediastinal silhouette is within normal limits. No acute osseous abnormality. IMPRESSION: No acute cardiopulmonary process is evident. No adverse interval changes. /[place]
[2025-06-19 05:01] VITALS: BP 125/66; PULSE 65; RESP 16; TEMP 98.1; O2SAT 98
--- NOTE | 2025-06-19 06:39 | EKG ---
[facility] Test Date: 2025-06-19 Test Time: 02:42:39 Pat Name: SATINDER PERRY Department: ED Room: Gender: F Egg Caser: [id number] : 1965 Requested By: CARLOS DOWLING Order Number: [id number] Reading MD: Harsh Levine Measurements Intervals Hydes Rate: 58 P: 51 SD: 139 QRS: 4 QRSD: 88 T: 57 QT: 406 QTc: 400 Interpretive Statements Sinus rhythm Consider left ventricular hypertrophy Nonspecific T abnormalities, anterior leads Compared to ECG 03/10/2024 13:31:33 Possible ischemia no longer present T-wave abnormality still present Electronically Signed On 06-21-2025 19:53:52 CDT by Harsh Levine Please click the below link to view image of tracing.
== END 2025-06-19 05:08 | disposition home or self-care (01) ==
LOC: EDH 02:47
DX: R07.89 Other chest pain (principal); Z93.3 Colostomy status
CPT/HCPCS: 99284; 96374; 71045; 84484; 80048; 83880; 85025; 85610; 85730; 36415; 93005; J1885